=== PATIENT | female | born 1995 | race Caucasian/White ===

== ENCOUNTER 2017-10-02 19:39 | Emergency (ER) | payer OTHER, MEDICAID ==
[~2017-10-02] VITALS: Ht 165.1 cm; Wt 95.4 kg
[~2017-10-02 19:39] MED LIST: ACET1TAB12 PO; ASPI-1265 PO; CIPR7.5D2 EACH EAR; ENAL2.5T40 PO; FURO-150 PO; IBUP-814 PO; LEVA15HF4 IH; ONDA8TAB6 PO
[2017-10-02 19:46] VITALS: BP 120/82
[2017-10-02] MEDS ORDERED: acetaminophen 325mg tablet PO ONE (20:10)
== END 2017-10-02 21:00 | disposition home or self-care (01) ==
LOC: ER 19:40
DX: M25.562 Pain in left knee (principal); Z79.82 Long term (current) use of aspirin; Z79.899 Other long term (current) drug therapy
CPT/HCPCS: 99283; A6449

== ENCOUNTER 2018-09-10 14:47 | Emergency (ER) | payer MEDICAID, OTHER ==
[~2018-09-10] VITALS: Ht 162.6 cm; Wt 101.0 kg
[2018-09-10 15:16] LABS: BASOPHILS % (AUTO) 0.1 % (0-1); EOSINOPHILS # (AUTO) 0.1 X10'3 (0-0.9); EOSINOPHILS % (AUTO) 1.5 % (0-6); HEMATOCRIT 43.6 % (35.0-45.0); HEMOGLOBIN 14.8 g/dl (12.0-16.0); LYMPHOCYTES # (AUTO) 1.3 X10'3 (1.1-4.8); LYMPHOCYTES % (AUTO) 18.9 % (21-51); MEAN CORPUSCULAR HEMOGLOBIN 29.6 PG (27.0-31.0); MEAN CORPUSCULAR HGB CONC 33.9 g/dL (33.0-36.5); MEAN CORPUSCULAR VOLUME 87.2 FL (78-98); MEAN PLATELET VOLUME 9.6 FL (7.4-10.4); MONOCYTES # (AUTO) 0.4 X10'3 (0-0.9); MONOCYTES % (AUTO) 6.6 % (2-12); NEUTROPHILS # (AUTO) 4.9 X10'3 (1.8-7.7); NEUTROPHILS % (AUTO) 72.9 % (42-75); PLATELET COUNT 170 X10'3 (140-440); RED CELL DISTRIBUTION WIDTH 14.4 % (11.5-14.5); WHITE BLOOD COUNT 6.7 X10'3 (4.5-11.0)
[2018-09-10 15:32] LABS: PROTHROMBIN TIME 11.6 SECONDS (9.0-12.0)
[2018-09-10 15:33] LABS: INR 1.2 INR
[2018-09-10 15:40] LABS: ALANINE AMINOTRANSFERASE 48 U/L (12-78); ALBUMIN 3.9 G/DL (3.4-5.0); ALBUMIN/GLOBULIN RATIO 0.9 (1.1-1.5); ALKALINE PHOSPHATASE 81 IU/L (20-180); AMYLASE 25 U/L (25-115); ANION GAP 13 (8-16); ASPARTATE AMINO TRANSFERASE 28 U/L (10-37); BILIRUBIN,TOTAL 0.8 MG/DL (0.1-1.0); BLOOD UREA NITROGEN 19 MG/DL (7-18); CALCIUM 9.7 MG/DL (8.5-10.1); CHLORIDE 103 MMOL/L (99-107); CREATININE 0.76 MG/DL (0.40-0.90); GLUCOSE 143 MG/DL (70-104); LIPASE 130 U/L (73-393); SODIUM 136 MMOL/L (135-145); TOTAL CARBON DIOXIDE 19.8 MMOL/L (24-32); TOTAL PROTEIN 8.2 G/DL (6.4-8.2); eGFR > 90 ML/MIN
[2018-09-10 15:56] LABS: URINE HCG NEGATIVE (NEG)
[2018-09-10 15:57] LABS: CLARITY,URINE CLEAR (Clear); COLOR,URINE STRAW (Yellow); GLUCOSE, URINE NEGATIVE (Neg); KETONES,URINE NEGATIVE (Neg); LEUKOCYTE ESTERASE ,URINE TRACE (Neg); NITRITES, URINE NEGATIVE (Neg); OCCULT BLOOD,URINE NEGATIVE (Neg); PH,URINE 5.5 (4.8-8.0); PROTEIN,URINE NEGATIVE (Neg); UROBILINOGEN,URINE 0.2 E.U/dL (0.2-1.0)
[2018-09-10 15:59] LABS: UA COLLECTION TYPE CLN CATCH MIDSTREAM
[2018-09-10 16:05] LABS: RBC,URINE NONE SEEN /HPF (0-2)
[2018-09-10] MEDS ORDERED: morphine 4 MG/ML inj SYRINge IM ONE (16:05)
[2018-09-10 16:11] LABS: BACTERIA,URINE FEW /HPF (Neg); SQUAMOUS EPITHELIAL CELL,UR FEW /LPF (FEW)
[2018-09-10 16:43] VITALS: BP 120/60
[2018-09-11] MEDS ORDERED: POLY17PO10 PO (05:19)
[2018-09-11] MEDS ORDERED: BISA-155 PO (05:19)
== END 2018-09-10 16:57 | disposition home or self-care (01) ==
LOC: ER 14:47
DX: R10.31 Right lower quadrant pain (principal); R10.32 Left lower quadrant pain; Z79.82 Long term (current) use of aspirin
CPT/HCPCS: 36415; 74176; 80053; 81001; 81025; 82150; 83690; 85025; 85610; 87088; 96372; 99284; J2270; 87077; 87186

== ENCOUNTER 2018-09-11 03:57 | Emergency (ER) | payer MEDICAID ==
[~2018-09-11] VITALS: Ht 162.6 cm; Wt 100.6 kg
[2018-09-11 04:00] VITALS: BP 142/85
[2018-09-11] MEDS ORDERED: acetaminophen 325mg tablet PO ONE (04:15)
[2018-09-11 04:47] LABS: BASOPHILS # (AUTO) 0.1 X10'3 (0-0.2); BASOPHILS % (AUTO) 0.7 % (0-1); EOSINOPHILS # (AUTO) 0.1 X10'3 (0-0.9); EOSINOPHILS % (AUTO) 1.5 % (0-6); HEMATOCRIT 44.2 % (35.0-45.0); HEMOGLOBIN 14.7 g/dl (12.0-16.0); LYMPHOCYTES # (AUTO) 1.5 X10'3 (1.1-4.8); LYMPHOCYTES % (AUTO) 18.6 % (21-51); MEAN CORPUSCULAR HEMOGLOBIN 29.1 PG (27.0-31.0); MEAN CORPUSCULAR HGB CONC 33.3 g/dL (33.0-36.5); MEAN CORPUSCULAR VOLUME 87.1 FL (78-98); MEAN PLATELET VOLUME 9.9 FL (7.4-10.4); MONOCYTES # (AUTO) 0.6 X10'3 (0-0.9); NEUTROPHILS # (AUTO) 5.8 X10'3 (1.8-7.7); NEUTROPHILS % (AUTO) 72.2 % (42-75); PLATELET COUNT 172 X10'3 (140-440); RED BLOOD COUNT 5.07 X10'6 (4.20-5.60); RED CELL DISTRIBUTION WIDTH 14.1 % (11.5-14.5)
[2018-09-11 04:54] LABS: ALANINE AMINOTRANSFERASE 49 U/L (12-78); ALBUMIN 3.9 G/DL (3.4-5.0); ALBUMIN/GLOBULIN RATIO 0.8 (1.1-1.5); ALKALINE PHOSPHATASE 87 IU/L (20-180); ANION GAP 14 (8-16); ASPARTATE AMINO TRANSFERASE 26 U/L (10-37); BLOOD UREA NITROGEN 16 MG/DL (7-18); BUN/CREATININE RATIO 21.6 (6.6-38.0); CALCIUM 8.9 MG/DL (8.5-10.1); CHLORIDE 101 MMOL/L (99-107); CREATININE 0.74 MG/DL (0.40-0.90); GLUCOSE 121 MG/DL (70-104); MAGNESIUM 1.6 MG/DL (1.5-2.4); POTASSIUM 3.9 MMOL/L (3.5-5.1); SODIUM 137 MMOL/L (135-145); TOTAL CARBON DIOXIDE 22.3 MMOL/L (24-32); TOTAL PROTEIN 8.6 G/DL (6.4-8.2); eGFR > 90 ML/MIN
[2018-09-11 04:56] LABS: INR 1.2 INR; PARTIAL THROMBOPLASTIN TIME 28 SECONDS (22-32); PROTHROMBIN TIME 11.6 SECONDS (9.0-12.0)
--- NOTE | 2018-09-11 05:07 | NUR ---
STATES TO HOLD ON BC AND LA FOR RIGHT NOW US AT BS
--- NOTE | 2018-09-11 05:12 | NUR ---
CARROLL INFORMED ME THAT THE PATIENT DOESN'T HAVE TO VOID RIGHT NOW (TRYING TO GET UA) AND THAT SHE DOESN'T WANT ANY PAIN MEDICINE, ANY MORE TESTS AND WANTS TO GO HOME, CARROLL INFORMED MD WELL AND MD IN ROOM NOW.
[2018-09-11] MEDS ORDERED: POLY17PO10 PO (05:19)
[2018-09-11] MEDS ORDERED: BISA-155 PO (05:19)
[2018-09-11] MEDS ORDERED: magnesium citrate 296ml oral solution PO ONE (05:25)
== END 2018-09-11 05:33 | disposition home or self-care (01) ==
LOC: ER 03:58
DX: I88.0 Nonspecific mesenteric lymphadenitis (principal); Z79.82 Long term (current) use of aspirin
CPT/HCPCS: 36415; 71045; 76830; 76856; 80053; 83735; 84145; 85025; 85610; 85730; 93005; 99284

== ENCOUNTER 2019-03-28 16:07 | Emergency (ER) | payer OTHER, MEDICAID ==
[~2019-03-28] VITALS: Ht 165.1 cm; Wt 99.5 kg
[~2019-03-28 16:07] MED LIST changes: +BISA-155 PO
[2019-03-28 16:18] VITALS: BP 104/59
== END 2019-03-28 17:19 | disposition home or self-care (01) ==
LOC: ER 16:08
DX: O9A.212 Injury, poisoning and certain other consequences of external causes complicating pregnancy, second trimester (principal); Z98.890 Other specified postprocedural states; Z79.82 Long term (current) use of aspirin; Z79.899 Other long term (current) drug therapy; Z3A.18 18 weeks gestation of pregnancy; V87.7XXA Person injured in collision between other specified motor vehicles (traffic), initial encounter; Y93.89 Activity, other specified; Y92.481 Parking lot as the place of occurrence of the external cause; Y99.8 Other external cause status
CPT/HCPCS: 99284

== ENCOUNTER 2021-02-11 08:50 | Emergency (ER) | payer MEDICAID, OTHER ==
[~2021-02-11] VITALS: Ht 165.1 cm; Wt 109.5 kg
[2021-02-11 08:51] VITALS: BP 165/110
[2021-02-11] MEDS ORDERED: CLIN-97 PO (10:33)
== END 2021-02-11 10:44 | disposition home or self-care (01) ==
LOC: ER 08:51
DX: K04.7 Periapical abscess without sinus (principal); K08.89 Other specified disorders of teeth and supporting structures; K72.90 Hepatic failure, unspecified without coma; Z79.82 Long term (current) use of aspirin; Z79.2 Long term (current) use of antibiotics; Z79.899 Other long term (current) drug therapy
CPT/HCPCS: 41800; 99283

== ENCOUNTER 2021-08-08 12:40 | Inpatient (IN) | payer MEDICAID ==
[~2021-08-08] VITALS: Ht 165.1 cm; Wt 104.0 kg
[~2021-08-08 12:40] MED LIST changes: +CLIN-97 PO
[2021-08-08] MEDS ORDERED: LORazepam 2 mg/ml vial IV ONE (13:00)
[2021-08-08] MEDS ORDERED: amiodarone/D5 360MG/200ML BAG 200 ML IV ONE ×3 (13:00→18:20)
[2021-08-08] MEDS ORDERED: amiodarone 150mg/dext, iso-os 100 ML IV ONE ×2 (13:00→15:45)
--- NOTE | 2021-08-08 13:11 | NUR ---
patient refused to be treated, Dr. Fuller at bedside HR 200.
[2021-08-08] MEDS ORDERED: metoprolol tartrate 1mg/ml inj IV ONE (13:30)
[2021-08-08 13:31] LABS: BASOPHILS % (AUTO) 0.6 % (0-1); EOSINOPHILS # (AUTO) 0.1 X10'3 (0-0.9); EOSINOPHILS % (AUTO) 1.5 % (0-6); HEMATOCRIT 48.4 % (35.0-45.0); HEMOGLOBIN 16.2 g/dl (12.0-16.0); LYMPHOCYTES # (AUTO) 1.9 X10'3 (1.1-4.8); LYMPHOCYTES % (AUTO) 37.8 % (21-51); MEAN CORPUSCULAR HEMOGLOBIN 29.5 PG (27.0-31.0); MEAN CORPUSCULAR HGB CONC 33.5 g/dL (33.0-36.5); MEAN CORPUSCULAR VOLUME 88.1 FL (78-98); MONOCYTES # (AUTO) 0.8 X10'3 (0-0.9); MONOCYTES % (AUTO) 14.7 % (2-12); NEUTROPHILS # (AUTO) 2.3 X10'3 (1.8-7.7); NEUTROPHILS % (AUTO) 45.4 % (42-75); PLATELET COUNT 175 X10'3 (140-440); RED BLOOD COUNT 5.49 X10'6 (4.20-5.60); RED CELL DISTRIBUTION WIDTH 15.4 % (11.5-14.5); WHITE BLOOD COUNT 5.2 X10'3 (4.5-11.0)
[2021-08-08 13:31] LABS: HCG SERUM QL NEGATIVE
[2021-08-08] MEDS ORDERED: heparin 10,000 units/1 ML INJ IV ONE (13:35)
[2021-08-08] MEDS ORDERED: heparin 25,000 UNIT/250ml bag 250 ML IV SCH (13:35)
[2021-08-08 13:38] LABS: ALANINE AMINOTRANSFERASE 55 U/L (12-78); ALBUMIN 4.4 G/DL (3.4-5.0); ALBUMIN/GLOBULIN RATIO 0.9 (1.1-1.5); ALKALINE PHOSPHATASE 77 IU/L (46-116); ANION GAP 16 (8-16); ASPARTATE AMINO TRANSFERASE 49 U/L (10-37); BILIRUBIN,TOTAL 1.6 MG/DL (0.1-1.0); BLOOD UREA NITROGEN 15 MG/DL (7-18); BUN/CREATININE RATIO 13.9 (6.6-38.0); CALCIUM 9.5 MG/DL (8.5-10.1); CHLORIDE 101 MMOL/L (99-107); CREATININE 1.08 MG/DL (0.40-0.90); GLUCOSE 166 MG/DL (70-104); MAGNESIUM 1.8 MG/DL (1.5-2.4); POTASSIUM 3.6 MMOL/L (3.5-5.1); SODIUM 138 MMOL/L (135-145); TOTAL CARBON DIOXIDE 21.4 MMOL/L (24-32); TOTAL PROTEIN 9.1 G/DL (6.4-8.2); eGFR 63 ML/MIN
--- NOTE | 2021-08-08 13:54 | NUR ---
Dr. Jones ok'd to give heparin bolus and start heparin drip.Patient agreed with treatment.
[2021-08-08] MEDS ORDERED: magnesium 2GM in 50ml NS 50 ML IV ONE (14:05)
--- NOTE | 2021-08-08 14:31 | NUR ---
use cardaic with heparin drip per Dr. Fuller.
[2021-08-08] MEDS ORDERED: ondansetron 4mg rapidly disintigrating tab PO STA (15:24)
[2021-08-08] MEDS ORDERED: ondansetron/PF 4mg/2ml inj IV STA (15:25)
[2021-08-08] MEDS ORDERED: ondansetron/PF 4mg/2ml inj IV ONE (15:45)
[2021-08-08] MEDS ORDERED: etomidate 2mg/ml inj. IV ONE (15:45)
--- NOTE | 2021-08-08 16:57 | NUR ---
patient changed her mind-will talk to first to see if what he thinks.
--- NOTE | 2021-08-08 16:57 | NUR ---
patient wanted to go home,AMA form signed, Antonio RAMÍREZ at bedside.
--- NOTE | 2021-08-08 16:58 | NUR ---
Spouse at bedside,patient will go AMA.
--- NOTE | 2021-08-08 16:58 | NUR ---
Dr. Amaro and Dr. Baptiste made aware as above.
[2021-08-08] MEDS ORDERED: AMIO200T27 PO (17:06)
[2021-08-08] MEDS ORDERED: METO-395 PO ×2 (17:06→18:23)
[2021-08-08] MEDS ORDERED: diphenhydrAMINE 25mg capsule PO PRN (18:05)
[2021-08-08] MEDS ORDERED: potassium Cl 20 mEq SR tablet PO PRN ×2 (18:05)
[2021-08-08] MEDS ORDERED: HYDROcodone/acetaminophen 10/325mg tab PO PRN (18:05)
[2021-08-08] MEDS ORDERED: magnesium Cl slow-release 64mg tablet PO PRN (18:05)
[2021-08-08] MEDS ORDERED: acetaminophen 650mg rectal suppository RC PRN (18:05)
[2021-08-08] MEDS ORDERED: normal saline 1000ml 1,000 ML IV SCH (18:05)
[2021-08-08] MEDS ORDERED: magnesium 4gm in 100ml NS 100 ML IV PRN (18:05)
[2021-08-08] MEDS ORDERED: magnesium hydroxide 30ml (MOM) UD suspension PO PRN (18:05)
[2021-08-08] MEDS ORDERED: bisacodyl 10mg suppository rectal RC PRN (18:05)
[2021-08-08] MEDS ORDERED: morphine 2 MG/ML inj. syringe IV PRN ×2 (18:05)
[2021-08-08] MEDS ORDERED: acetaminophen 325mg tablet PO PRN ×2 (18:05)
[2021-08-08] MEDS ORDERED: potassium CL 10mEq/100ml bag 100 ML IV PRN (18:05)
[2021-08-08] MEDS ORDERED: HYDROcodone/acetaminophen 5mg/325mg tablet PO PRN (18:05)
[2021-08-08] MEDS ORDERED: magnesium 2GM in 50ml NS 50 ML IV PRN (18:05)
[2021-08-08] MEDS ORDERED: mag hydrox/Alum hydrox/simeth 30ml oral suspension PO PRN (18:05)
[2021-08-08] MEDS ORDERED: PERFLUTREN PROTEIN-A MICROSPHR (Optison) 0.22 MG/ML 3ML VIAL IV ONE (18:05)
[2021-08-08] MEDS ORDERED: amiodarone/D5 360MG/200ML BAG 200 ML IV SCH (18:17)
[2021-08-08] MEDS ORDERED: ASPI-1071 PO (18:23)
[2021-08-08 18:52] LABS: HEMOGLOBIN A1C 5.6 % (4.5-6.2)
[2021-08-08] MEDS ORDERED: docusate sod 100mg capsule PO SCH (20:00)
[2021-08-08] MEDS ORDERED: K and/or MAG REPLACEMENT MC SCH (20:00)
[2021-08-08] MEDS ORDERED: heparin, porcine 5000 units/ml vial SQ SCH (20:00)
[2021-08-08] MEDS ORDERED: PERFLUTREN PROTEIN-A MICROSPHR (Optison) 0.22 MG/ML 3ML VIAL IV PRN (20:30)
[2021-08-08] MEDS ORDERED: AMIO200T61 PO (20:39)
[2021-08-08] MEDS ORDERED: APIX5TAB3 PO (20:39)
[2021-08-08 21:19] VITALS: BP 96/67
== END 2021-08-08 21:00 | disposition left against medical advice (07) | DRG 201 ==
LOC: ER 12:42 → ED HOLD 18:14
PROVIDERS: ADMIT Family Medicine; ATTEND Family Medicine
PROC: 5A2204Z Restoration of Cardiac Rhythm, Single (ICD-10-PCS; principal; 2021-08-08)
DX: I48.91 Unspecified atrial fibrillation (principal); I08.1 Rheumatic disorders of both mitral and tricuspid valves; Z20.822 Contact with and (suspected) exposure to COVID-19; Z53.29 Procedure and treatment not carried out because of patient's decision for other reasons; Z79.899 Other long term (current) drug therapy; Z79.82 Long term (current) use of aspirin; Z91.19 Patient's noncompliance with other medical treatment and regimen
CPT/HCPCS: 36415; 80053; 83036; 83735; 84443; 84484; 84703; 85025; 85610; 85730; 87635; 93005; 94799; 96365; 96366; 96368; 96375; 99285; C9803; G0378; J0282; J1644; J3475; J3490

== ENCOUNTER 2022-02-13 19:42 | Emergency (ER) | payer MEDICAID ==
[~2022-02-13] VITALS: Ht 165.1 cm; Wt 109.1 kg
[~2022-02-13 19:42] MED LIST changes: -ACET1TAB12 PO; +ASPI-1071 PO; -ASPI-1265 PO; -BISA-155 PO; -CIPR7.5D2 EACH EAR; -CLIN-97 PO; -ENAL2.5T40 PO; -FURO-150 PO; -IBUP-814 PO; -LEVA15HF4 IH; +METO-395 PO; -ONDA8TAB6 PO
[2022-02-13] MEDS ORDERED: diltiazem 5mg/ml 5ml inj. IV ONE ×3 (20:05→20:10)
[2022-02-13] MEDS ORDERED: normal saline 1000ML IV soln IVB ONE (20:05)
[2022-02-13] MEDS ORDERED: amiodarone 150mg/dext, iso-os 100 ML IV ONE (20:10)
[2022-02-13] MEDS ORDERED: magnesium 2GM in 50ml NS 50 ML IV ONE (20:10)
[2022-02-13 20:35] LABS: BASOPHILS % (AUTO) 0.3 % (0-1); EOSINOPHILS # (AUTO) 0.1 X10'3 (0-0.9); EOSINOPHILS % (AUTO) 0.6 % (0-6); HEMATOCRIT 49.7 % (35.0-45.0); HEMOGLOBIN 16.6 g/dl (12.0-16.0); LYMPHOCYTES # (AUTO) 1.9 X10'3 (1.1-4.8); LYMPHOCYTES % (AUTO) 16.3 % (21-51); MEAN CORPUSCULAR HGB CONC 33.3 g/dL (33.0-36.5); MEAN PLATELET VOLUME 9.6 FL (7.4-10.4); MONOCYTES # (AUTO) 0.7 X10'3 (0-0.9); MONOCYTES % (AUTO) 6.2 % (2-12); NEUTROPHILS # (AUTO) 8.7 X10'3 (1.8-7.7); NEUTROPHILS % (AUTO) 76.6 % (42-75); PLATELET COUNT 221 X10'3 (140-440); RED BLOOD COUNT 5.53 X10'6 (4.20-5.60); RED CELL DISTRIBUTION WIDTH 14.3 % (11.5-14.5); WHITE BLOOD COUNT 11.4 X10'3 (4.5-11.0)
[2022-02-13 20:37] LABS: APTT 29 SECONDS (22-32)
[2022-02-13 20:42] LABS: ALANINE AMINOTRANSFERASE 56 U/L (12-78); ALBUMIN 4.4 G/DL (3.4-5.0); ALKALINE PHOSPHATASE 70 IU/L (46-116); ANION GAP 12 (8-16); ASPARTATE AMINO TRANSFERASE 34 U/L (10-37); BILIRUBIN,TOTAL 1.1 MG/DL (0.1-1.0); BLOOD UREA NITROGEN 20 MG/DL (7-18); BUN/CREATININE RATIO 19.6 (6.6-38.0); CALCIUM 9.7 MG/DL (8.5-10.1); CHLORIDE 104 MMOL/L (99-107); CREATININE 1.02 MG/DL (0.40-0.90); GLUCOSE 129 MG/DL (70-104); POTASSIUM 4.1 MMOL/L (3.5-5.1); SODIUM 138 MMOL/L (135-145); TOTAL PROTEIN 8.9 G/DL (6.4-8.2); eGFR 67 ML/MIN
[2022-02-13 20:49] LABS: MAGNESIUM 1.8 MG/DL (1.5-2.4)
[2022-02-13] MEDS ORDERED: APIX5TAB3 PO (22:25)
[2022-02-13] MEDS ORDERED: AMIO200T61 PO (22:25)
[2022-02-13] MEDS ORDERED: propofol 10mg/ml 20ml vial IV ONE ×2 (22:35→23:15)
[2022-02-13] MEDS ORDERED: MIDAZolam 5mg/ml 2ml vial IV ONE (22:35)
[2022-02-13] MEDS ORDERED: vasopressin inj. 40 UNIT in dextrose 5%-water 50ml 38 ML IV SCH (23:00)
[2022-02-13] MEDS ORDERED: vasoPRESSIN 20 units/ml inj. IV ONE (23:05)
[2022-02-14 00:59] VITALS: BP 107/60
== END 2022-02-14 01:02 | disposition home or self-care (01) ==
LOC: ER 19:43
DX: I48.20 Chronic atrial fibrillation, unspecified (principal); Z87.19 Personal history of other diseases of the digestive system
CPT/HCPCS: 36415; 71045; 80053; 83735; 83880; 84484; 85025; 85610; 85730; 92960; 93005; 94799; 96365; 96368; 96375; 99291; J0282; J2250; J2704; J3475; J3490; J7030; 99285

== ENCOUNTER 2023-04-10 16:22 | Emergency (ER) | payer MEDICAID ==
[~2023-04-10] VITALS: Ht 165.1 cm; Wt 106.8 kg
[~2023-04-10 16:22] MED LIST changes: +AMI200T PO; +APIX5TAB3 PO; -ASPI-1071 PO; -METO-395 PO
[2023-04-10 16:55] LABS: BASOPHILS % (AUTO) 0.6 % (0-1); EOSINOPHILS # (AUTO) 0.1 X10'3 (0-0.9); EOSINOPHILS % (AUTO) 2.5 % (0-6); HEMATOCRIT 40.4 % (35.0-45.0); HEMOGLOBIN 13.6 g/dl (12.0-16.0); LYMPHOCYTES # (AUTO) 1.4 X10'3 (1.1-4.8); LYMPHOCYTES % (AUTO) 25.1 % (21-51); MEAN CORPUSCULAR HEMOGLOBIN 28.9 PG (27.0-31.0); MEAN CORPUSCULAR HGB CONC 33.7 g/dL (33.0-36.5); MEAN CORPUSCULAR VOLUME 85.6 FL (78-98); MEAN PLATELET VOLUME 9.2 FL (7.4-10.4); MONOCYTES # (AUTO) 0.6 X10'3 (0-0.9); MONOCYTES % (AUTO) 11.2 % (2-12); NEUTROPHILS # (AUTO) 3.4 X10'3 (1.8-7.7); NEUTROPHILS % (AUTO) 60.6 % (42-75); PLATELET COUNT 194 X10'3 (140-440); RED BLOOD COUNT 4.72 X10'6 (4.20-5.60); RED CELL DISTRIBUTION WIDTH 14.4 % (11.5-14.5); WHITE BLOOD COUNT 5.6 X10'3 (4.5-11.0)
[2023-04-10 17:10] LABS: ALANINE AMINOTRANSFERASE 44 U/L (12-78); ALBUMIN 3.7 G/DL (3.4-5.0); ALBUMIN/GLOBULIN RATIO 0.8 (1.1-1.5); ALKALINE PHOSPHATASE 65 IU/L (46-116); ANION GAP 13 (8-16); ASPARTATE AMINO TRANSFERASE 29 U/L (10-37); BILIRUBIN,TOTAL 1.9 MG/DL (0.1-1.0); BLOOD UREA NITROGEN 22 MG/DL (7-18); BUN/CREATININE RATIO 26.5 (10.0-20.0); CALCIUM 9.9 MG/DL (8.5-10.1); CHLORIDE 103 MMOL/L (99-107); CREATININE 0.83 MG/DL (0.40-0.90); GLUCOSE 109 MG/DL (70-104); SODIUM 138 MMOL/L (135-145); TOTAL CARBON DIOXIDE 22.1 MMOL/L (24-32); TOTAL PROTEIN 8.2 G/DL (6.4-8.2); eCRCL 93 ML/MIN; eGFR 84 ML/MIN
[2023-04-10 17:11] VITALS: TEMP 98
--- NOTE | 2023-04-10 17:13 | NUR ---
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 VITAL SIGNS AND CONDITION REPORT GIVEN TO AND SHE SPOKE WITH DR. PERRY VIA TELEPHONE.
[2023-04-10 17:17] LABS: PRO BRAIN NATRIURETIC PEPTIDE 704 PG/ML (0-125)
[2023-04-10] MEDS ORDERED: magnesium 2GM in 50ml NS 50 ML IV ONE (19:55)
[2023-04-10] MEDS ORDERED: magnesium oxide 400mg tablet PO ONE (19:55)
[2023-04-10 20:00] LABS: MAGNESIUM 1.8 MG/DL (1.5-2.4)
[2023-04-10] MEDS ORDERED: metoprolol tartrate 50mg tablet PO ONE (20:15)
[2023-04-10] MEDS ORDERED: ringers solution, lacted 1,000 ML IV ONE (20:20)
[2023-04-10 22:59] VITALS: BP 96/66; PULSE 100; RESP 20; O2SAT 99
== END 2023-04-10 20:00 | disposition home or self-care (01) ==
LOC: ER 16:22
DX: I47.1 Supraventricular tachycardia (principal); Q24.9 Congenital malformation of heart, unspecified; Z79.899 Other long term (current) drug therapy; Z98.890 Other specified postprocedural states
CPT/HCPCS: 36415; 71045; 80053; 83735; 83880; 84484; 85025; 93005; 96365; 99291; J3475; J7120; 99285

== ENCOUNTER 2023-06-02 21:46 | Emergency (ER) | payer MEDICAID ==
[~2023-06-02] VITALS: Ht 162.6 cm; Wt 100.0 kg
[2023-06-02 22:45] LABS: ALANINE AMINOTRANSFERASE 33 U/L (12-78); ALBUMIN 3.7 G/DL (3.4-5.0); ALBUMIN/GLOBULIN RATIO 0.8 (1.1-1.5); ALKALINE PHOSPHATASE 72 IU/L (46-116); ANION GAP 11 (8-16); ASPARTATE AMINO TRANSFERASE 30 U/L (10-37); BILIRUBIN,TOTAL 1.1 MG/DL (0.1-1.0); BLOOD UREA NITROGEN 12 MG/DL (7-18); BUN/CREATININE RATIO 18.8 (10.0-20.0); CALCIUM 9.9 MG/DL (8.5-10.1); CHLORIDE 102 MMOL/L (99-107); CREATININE 0.64 MG/DL (0.40-0.90); GLUCOSE 130 MG/DL (70-104); SODIUM 135 MMOL/L (135-145); TOTAL CARBON DIOXIDE 22.5 MMOL/L (24-32); TOTAL PROTEIN 8.2 G/DL (6.4-8.2); eCRCL 116 ML/MIN; eGFR > 90 ML/MIN
[2023-06-02 22:52] LABS: PRO BRAIN NATRIURETIC PEPTIDE 458 PG/ML (0-125)
[2023-06-02 22:56] LABS: POTASSIUM 3.7 MMOL/L (3.5-5.1)
--- NOTE | 2023-06-02 23:01 | NUR ---
CALL FROM LAB BLOOD CLOTTED ON LAVENDER TUBE WILL RE-DRAW.
[2023-06-02 23:32] LABS: BASOPHILS % (AUTO) 0.5 % (0-1); EOSINOPHILS # (AUTO) 0.1 X10'3 (0-0.9); EOSINOPHILS % (AUTO) 1.6 % (0-6); HEMATOCRIT 40.7 % (35.0-45.0); HEMOGLOBIN 13.6 g/dl (12.0-16.0); LYMPHOCYTES # (AUTO) 1.3 X10'3 (1.1-4.8); MEAN CORPUSCULAR HEMOGLOBIN 27.9 PG (27.0-31.0); MEAN CORPUSCULAR HGB CONC 33.4 g/dL (33.0-36.5); MEAN CORPUSCULAR VOLUME 83.5 FL (78-98); MEAN PLATELET VOLUME 9.5 FL (7.4-10.4); MONOCYTES # (AUTO) 0.6 X10'3 (0-0.9); MONOCYTES % (AUTO) 7.8 % (2-12); NEUTROPHILS # (AUTO) 5.4 X10'3 (1.8-7.7); NEUTROPHILS % (AUTO) 73.1 % (42-75); PLATELET COUNT 157 X10'3 (140-440); RED BLOOD COUNT 4.87 X10'6 (4.20-5.60); RED CELL DISTRIBUTION WIDTH 14.8 % (11.5-14.5); WHITE BLOOD COUNT 7.4 X10'3 (4.5-11.0)
[2023-06-02 23:52] VITALS: BP 106/64; PULSE 91; RESP 16; TEMP 98.3; O2SAT 94
== END 2023-06-02 23:56 | disposition home or self-care (01) ==
LOC: ER 21:47
DX: R00.2 Palpitations (principal); Z79.899 Other long term (current) drug therapy
CPT/HCPCS: 36415; 71045; 80053; 83880; 84484; 85025; 93005; 99285

== ENCOUNTER 2023-07-26 17:29 | Emergency (ER) | payer MEDICAID ==
[~2023-07-26] VITALS: Ht 165.1 cm; Wt 95.9 kg
[2023-07-26 17:48] LABS: BASOPHILS # (AUTO) 0.1 X10'3 (0-0.2); EOSINOPHILS # (AUTO) 0.1 X10'3 (0-0.9); EOSINOPHILS % (AUTO) 0.8 % (0-6); HEMATOCRIT 42.7 % (35.0-45.0); HEMOGLOBIN 14.8 g/dl (12.0-16.0); LYMPHOCYTES # (AUTO) 0.4 X10'3 (1.1-4.8); LYMPHOCYTES % (AUTO) 6.1 % (21-51); MEAN CORPUSCULAR HEMOGLOBIN 29.7 PG (27.0-31.0); MEAN CORPUSCULAR HGB CONC 34.6 g/dL (33.0-36.5); MEAN CORPUSCULAR VOLUME 85.9 FL (78-98); MEAN PLATELET VOLUME 9.3 FL (7.4-10.4); MONOCYTES # (AUTO) 0.5 X10'3 (0-0.9); MONOCYTES % (AUTO) 7.6 % (2-12); NEUTROPHILS # (AUTO) 5.7 X10'3 (1.8-7.7); NEUTROPHILS % (AUTO) 83.5 % (42-75); PLATELET COUNT 196 X10'3 (140-440); RED BLOOD COUNT 4.97 X10'6 (4.20-5.60); RED CELL DISTRIBUTION WIDTH 17.9 % (11.5-14.5); WHITE BLOOD COUNT 6.8 X10'3 (4.5-11.0)
[2023-07-26 18:03] LABS: ALANINE AMINOTRANSFERASE 39 U/L (12-78); ALBUMIN 3.8 G/DL (3.4-5.0); ALBUMIN/GLOBULIN RATIO 0.8 (1.1-1.5); ALKALINE PHOSPHATASE 90 IU/L (46-116); ANION GAP 13 (8-16); ASPARTATE AMINO TRANSFERASE 27 U/L (10-37); BILIRUBIN,TOTAL 1.9 MG/DL (0.1-1.0); BLOOD UREA NITROGEN 15 MG/DL (7-18); CALCIUM 9.6 MG/DL (8.5-10.1); CHLORIDE 100 MMOL/L (99-107); CREATININE 0.94 MG/DL (0.40-0.90); GLUCOSE 115 MG/DL (70-104); POTASSIUM 4.2 MMOL/L (3.5-5.1); SODIUM 132 MMOL/L (135-145); TOTAL CARBON DIOXIDE 19.5 MMOL/L (24-32); TOTAL PROTEIN 8.7 G/DL (6.4-8.2); eCRCL 82 ML/MIN; eGFR 73 ML/MIN
[2023-07-26 18:10] LABS: PRO BRAIN NATRIURETIC PEPTIDE 783 PG/ML (0-125)
[2023-07-26] MEDS ORDERED: ondansetron 4mg rapidly disintigrating tab PO ONE (18:55)
[2023-07-26] MEDS ORDERED: normal saline 1000ml 1,000 ML IV ONE (18:55)
[2023-07-26] MEDS ORDERED: dexamethasone sod phosphate 10mg/ml inj IV STA (19:04)
[2023-07-26] MEDS ORDERED: ketorolac tromethamine 15mg/ml inj. IV ONE (19:05)
[2023-07-26] MEDS ORDERED: dexamethasone sod phosphate 4mg/ml inj. IV STA (19:11)
[2023-07-26 20:17] VITALS: TEMP 98.7
[2023-07-26 21:50] VITALS: BP 96/52; PULSE 87; RESP 17; O2SAT 93
[2023-07-26] MEDS ORDERED: NIRM1TAB PO (21:52)
== END 2023-07-26 22:37 | disposition home or self-care (01) ==
LOC: ER 22:36
DX: U07.1 COVID-19 (principal); R07.89 Other chest pain; I99.9 Unspecified disorder of circulatory system; I48.91 Unspecified atrial fibrillation; Q24.9 Congenital malformation of heart, unspecified; Z79.899 Other long term (current) drug therapy
CPT/HCPCS: 36415; 71045; 80053; 83880; 84145; 84484; 85025; 87502; 87503; 87811; 96361; 96374; 96375; 99291; J1100; J1885; J7030; 99285

== ENCOUNTER 2023-09-20 23:38 | Emergency (ER) | payer MEDICAID ==
[~2023-09-20] VITALS: Ht 165.1 cm; Wt 94.5 kg
[~2023-09-20 23:38] MED LIST changes: +NIRM1TAB PO
[2023-09-20 23:51] VITALS: TEMP 97.8
[2023-09-20] MEDS ORDERED: diltiazem 5mg/ml 5ml inj. IV ONE (23:55)
[2023-09-21] MEDS: ondansetron/PF 4mg/2ml inj IV ONE (00:18)
[2023-09-21] MEDS: normal saline 1000ml 1,000 ML IV ONE ×2 (00:19→01:35)
[2023-09-21] MEDS: adenosine 3mg/ml 2ml vial IV ONE (00:19)
[2023-09-21 00:34] LABS: BASOPHILS # (AUTO) 0.1 X10'3 (0-0.2); BASOPHILS % (AUTO) 0.7 % (0-1); EOSINOPHILS # (AUTO) 0.1 X10'3 (0-0.9); EOSINOPHILS % (AUTO) 1.6 % (0-6); HEMATOCRIT 46.4 % (35.0-45.0); HEMOGLOBIN 15.7 g/dl (12.0-16.0); LYMPHOCYTES # (AUTO) 2.8 X10'3 (1.1-4.8); LYMPHOCYTES % (AUTO) 33.1 % (21-51); MEAN CORPUSCULAR HEMOGLOBIN 30.1 PG (27.0-31.0); MEAN CORPUSCULAR HGB CONC 33.8 g/dL (33.0-36.5); MEAN CORPUSCULAR VOLUME 89.1 FL (78-98); MEAN PLATELET VOLUME 10.1 FL (7.4-10.4); MONOCYTES # (AUTO) 0.8 X10'3 (0-0.9); MONOCYTES % (AUTO) 8.9 % (2-12); NEUTROPHILS # (AUTO) 4.7 X10'3 (1.8-7.7); NEUTROPHILS % (AUTO) 55.7 % (42-75); PLATELET COUNT 200 X10'3 (140-440); WHITE BLOOD COUNT 8.5 X10'3 (4.5-11.0)
[2023-09-21] MEDS: propofol 10mg/ml 20ml vial IV STA (00:35)
[2023-09-21 00:45] LABS: ALANINE AMINOTRANSFERASE 36 U/L (12-78); ALBUMIN 4.2 G/DL (3.4-5.0); ALKALINE PHOSPHATASE 77 IU/L (46-116); ANION GAP 14 (8-16); ASPARTATE AMINO TRANSFERASE 17 U/L (10-37); BILIRUBIN,TOTAL 1.1 MG/DL (0.1-1.0); BLOOD UREA NITROGEN 27 MG/DL (7-18); CALCIUM 9.3 MG/DL (8.5-10.1); CHLORIDE 102 MMOL/L (99-107); CREATININE 1.08 MG/DL (0.40-0.90); GLUCOSE 189 MG/DL (70-104); POTASSIUM 4.4 MMOL/L (3.5-5.1); SODIUM 137 MMOL/L (135-145); TOTAL CARBON DIOXIDE 20.8 MMOL/L (24-32); TOTAL PROTEIN 8.6 G/DL (6.4-8.2); eCRCL 72 ML/MIN; eGFR 62 ML/MIN
[2023-09-21 00:52] LABS: PRO BRAIN NATRIURETIC PEPTIDE 619 PG/ML (0-125)
[2023-09-21 01:30] VITALS: BP 100/57; PULSE 92; RESP 16; O2SAT 99
[2023-09-21 01:44] LABS: THYROID STIMULATING HORMONE 17.32 ulU/ml (0.34-4.50)
== END 2023-09-21 02:01 | disposition home or self-care (01) ==
LOC: ER 23:38
DX: I47.10 Supraventricular tachycardia, unspecified (principal); R11.0 Nausea; Z79.899 Other long term (current) drug therapy
CPT/HCPCS: 36415; 71045; 80053; 83880; 84439; 84443; 84484; 85025; 92960; 93005; 96374; 96375; 99291; J0153; J2405; J7030; 94760

== ENCOUNTER 2023-09-30 20:29 | Emergency (ER) | payer MEDICAID ==
[~2023-09-30] VITALS: Ht 167.6 cm; Wt 95.0 kg
[2023-09-30 20:38] VITALS: TEMP 98
[2023-09-30 20:59] LABS: BASOPHILS # (AUTO) 0.1 X10'3 (0-0.2); BASOPHILS % (AUTO) 1.5 % (0-1); EOSINOPHILS # (AUTO) 0.1 X10'3 (0-0.9); EOSINOPHILS % (AUTO) 1.5 % (0-6); HEMATOCRIT 50.3 % (35.0-45.0); HEMOGLOBIN 16.7 g/dl (12.0-16.0); LYMPHOCYTES % (AUTO) 31.6 % (21-51); MEAN CORPUSCULAR HEMOGLOBIN 29.8 PG (27.0-31.0); MEAN CORPUSCULAR HGB CONC 33.2 g/dL (33.0-36.5); MEAN CORPUSCULAR VOLUME 89.8 FL (78-98); MEAN PLATELET VOLUME 9.8 FL (7.4-10.4); MONOCYTES # (AUTO) 0.8 X10'3 (0-0.9); MONOCYTES % (AUTO) 8.8 % (2-12); NEUTROPHILS # (AUTO) 5.3 X10'3 (1.8-7.7); NEUTROPHILS % (AUTO) 56.6 % (42-75); PLATELET COUNT 211 X10'3 (140-440); WHITE BLOOD COUNT 9.3 X10'3 (4.5-11.0)
[2023-09-30 21:08] LABS: ALANINE AMINOTRANSFERASE 58 U/L (12-78); ALBUMIN 4.5 G/DL (3.4-5.0); ALKALINE PHOSPHATASE 91 IU/L (46-116); ANION GAP 16 (8-16); ASPARTATE AMINO TRANSFERASE 30 U/L (10-37); BILIRUBIN,TOTAL 2.3 MG/DL (0.1-1.0); BLOOD UREA NITROGEN 19 MG/DL (7-18); BUN/CREATININE RATIO 16.2 (10.0-20.0); CALCIUM 9.7 MG/DL (8.5-10.1); CHLORIDE 103 MMOL/L (99-107); CREATININE 1.17 MG/DL (0.40-0.90); GLUCOSE 117 MG/DL (70-104); POTASSIUM 3.6 MMOL/L (3.5-5.1); SODIUM 141 MMOL/L (135-145); TOTAL CARBON DIOXIDE 21.8 MMOL/L (24-32); TOTAL PROTEIN 9.2 G/DL (6.4-8.2); eCRCL 66 ML/MIN; eGFR 56 ML/MIN
[2023-09-30 21:16] LABS: BILIRUBIN,DIRECT 0.9 MG/DL (0-0.3); PRO BRAIN NATRIURETIC PEPTIDE 811 PG/ML (0-125)
[2023-09-30] MEDS ORDERED: metoprolol tartrate 50mg tablet PO STA (22:20)
[2023-09-30] MEDS: metoprolol tartrate 25mg tablet PO STA (22:28)
[2023-09-30] MEDS: propofol 10mg/ml 20ml vial IV ONE (22:35)
[2023-09-30] MEDS: metoprolol tartrate 1mg/ml inj IV ONE (22:35)
[2023-09-30] MEDS: normal saline 1000ML IV soln IVB ONE (22:35)
[2023-09-30] MEDS: LORazepam 2 mg/ml vial IV ONE (22:35)
[2023-10-01 00:21] VITALS: BP 98/67; PULSE 109; RESP 16; O2SAT 94
== END 2023-10-01 00:53 | disposition left against medical advice (07) ==
LOC: ER 20:30
DX: I48.20 Chronic atrial fibrillation, unspecified (principal); Q24.9 Congenital malformation of heart, unspecified; I47.19 Other supraventricular tachycardia
CPT/HCPCS: 36415; 71045; 80048; 80076; 83880; 84484; 85025; 93005; 96360; 99285; J7030

== ENCOUNTER 2023-10-04 04:11 | Emergency (ER) | payer MEDICAID ==
[~2023-10-04] VITALS: Ht 165.1 cm; Wt 92.7 kg
[2023-10-04] MEDS: normal saline 1000ml 1,000 ML IV ONE (04:45)
[2023-10-04 05:00] LABS: BASOPHILS # (AUTO) 0.1 X10'3 (0-0.2); BASOPHILS % (AUTO) 0.6 % (0-1); EOSINOPHILS # (AUTO) 0.2 X10'3 (0-0.9); HEMATOCRIT 48.9 % (35.0-45.0); HEMOGLOBIN 16.1 g/dl (12.0-16.0); LYMPHOCYTES # (AUTO) 3.8 X10'3 (1.1-4.8); LYMPHOCYTES % (AUTO) 39.6 % (21-51); MEAN CORPUSCULAR HEMOGLOBIN 29.8 PG (27.0-31.0); MEAN CORPUSCULAR VOLUME 90.3 FL (78-98); MEAN PLATELET VOLUME 10.2 FL (7.4-10.4); MONOCYTES # (AUTO) 0.8 X10'3 (0-0.9); MONOCYTES % (AUTO) 8.3 % (2-12); NEUTROPHILS # (AUTO) 4.7 X10'3 (1.8-7.7); NEUTROPHILS % (AUTO) 49.5 % (42-75); PLATELET COUNT 213 X10'3 (140-440); RED BLOOD COUNT 5.42 X10'6 (4.20-5.60); WHITE BLOOD COUNT 9.5 X10'3 (4.5-11.0)
[2023-10-04 05:10] LABS: ALANINE AMINOTRANSFERASE 48 U/L (12-78); ALBUMIN 4.2 G/DL (3.4-5.0); ALKALINE PHOSPHATASE 82 IU/L (46-116); ANION GAP 14 (8-16); ASPARTATE AMINO TRANSFERASE 23 U/L (10-37); BLOOD UREA NITROGEN 18 MG/DL (7-18); BUN/CREATININE RATIO 13.6 (10.0-20.0); CALCIUM 9.4 MG/DL (8.5-10.1); CHLORIDE 102 MMOL/L (99-107); CREATININE 1.32 MG/DL (0.40-0.90); GLUCOSE 217 MG/DL (70-104); POTASSIUM 3.6 MMOL/L (3.5-5.1); SODIUM 139 MMOL/L (135-145); TOTAL CARBON DIOXIDE 22.7 MMOL/L (24-32); TOTAL PROTEIN 8.6 G/DL (6.4-8.2); eCRCL 59 ML/MIN; eGFR 49 ML/MIN
[2023-10-04 05:18] LABS: PRO BRAIN NATRIURETIC PEPTIDE 656 PG/ML (0-125)
[2023-10-04 06:05] LABS: MAGNESIUM 2.4 MG/DL (1.5-2.4)
[2023-10-04] MEDS ORDERED: sotalol 80mg tablet PO ONE (06:55)
[2023-10-04] MEDS ORDERED: sotalol 80mg tablet PO SCH (06:55)
[2023-10-04 07:21] VITALS: TEMP 97.9
[2023-10-04] MEDS: magnesium oxide 400mg tablet PO ONE (07:36)
[2023-10-04] MEDS: apixaban 5mg tablet PO ONE (07:36)
[2023-10-04] MEDS: potassium Cl 20 mEq SR tablet PO ONE (07:36)
[2023-10-04] MEDS: acetaminophen 325mg tablet PO ONE (07:36)
[2023-10-04] MEDS: metoprolol succinate 25mg (24-HOUR) SR. Tablet PO ONE (07:37)
[2023-10-04] MEDS: ondansetron/PF 4mg/2ml inj IV ONE (07:37)
[2023-10-04 09:32] VITALS: BP 95/72; PULSE 80; RESP 14; O2SAT 98
== END 2023-10-04 09:33 | disposition home or self-care (01) ==
LOC: ER 04:13
DX: I47.10 Supraventricular tachycardia, unspecified (principal); R11.0 Nausea; Z79.899 Other long term (current) drug therapy
CPT/HCPCS: 36415; 71045; 80053; 83735; 83880; 84484; 85025; 93005; 96361; 96374; 99291; J2405; J7030

== ENCOUNTER 2023-11-10 09:50 | Emergency (ER) | payer MEDICAID ==
[~2023-11-10] VITALS: Ht 165.1 cm; Wt 90.9 kg
[2023-11-10 10:10] VITALS: TEMP 97.7
[2023-11-10] MEDS: normal saline 1000ml 1,000 ML IV ONE ×2 (10:17→12:20)
[2023-11-10 10:19] LABS: BASOPHILS # (AUTO) 0.1 X10'3 (0-0.2); BASOPHILS % (AUTO) 0.6 % (0-1); EOSINOPHILS # (AUTO) 0.2 X10'3 (0-0.9); EOSINOPHILS % (AUTO) 2.4 % (0-6); HEMATOCRIT 48.5 % (35.0-45.0); HEMOGLOBIN 16.2 g/dl (12.0-16.0); LYMPHOCYTES # (AUTO) 2.8 X10'3 (1.1-4.8); LYMPHOCYTES % (AUTO) 32.2 % (21-51); MEAN CORPUSCULAR HEMOGLOBIN 28.8 PG (27.0-31.0); MEAN CORPUSCULAR HGB CONC 33.5 g/dL (33.0-36.5); MEAN PLATELET VOLUME 9.4 FL (7.4-10.4); MONOCYTES # (AUTO) 0.9 X10'3 (0-0.9); MONOCYTES % (AUTO) 10.8 % (2-12); NEUTROPHILS # (AUTO) 4.7 X10'3 (1.8-7.7); PLATELET COUNT 199 X10'3 (140-440); RED BLOOD COUNT 5.64 X10'6 (4.20-5.60); RED CELL DISTRIBUTION WIDTH 15.2 % (11.5-14.5); WHITE BLOOD COUNT 8.7 X10'3 (4.5-11.0)
[2023-11-10] MEDS: metoprolol tartrate 1mg/ml inj IV ONE (10:37)
[2023-11-10 10:38] LABS: ALBUMIN 4.2 G/DL (3.4-5.0); ANION GAP 9 (8-16); BLOOD UREA NITROGEN 22 MG/DL (7-18); BUN/CREATININE RATIO 16.1 (10.0-20.0); CALCIUM 9.5 MG/DL (8.5-10.1); CHLORIDE 102 MMOL/L (99-107); CREATININE 1.37 MG/DL (0.40-0.90); GLUCOSE 125 MG/DL (70-104); MAGNESIUM 2.2 MG/DL (1.5-2.4); POTASSIUM 3.5 MMOL/L (3.5-5.1); SODIUM 137 MMOL/L (135-145); TOTAL CARBON DIOXIDE 26.4 MMOL/L (24-32); eCRCL 56 ML/MIN; eGFR 47 ML/MIN
[2023-11-10] MEDS: morphine 2 MG/ML inj. syringe IV ONE (10:47)
[2023-11-10] MEDS: diltiazem 5mg/ml 5ml inj. IV ONE (10:53)
[2023-11-10 11:53] LABS: HCG SERUM QL NEGATIVE
[2023-11-10 11:57] LABS: D-DIMER < 0.19 MG/L FEU (0-0.50)
[2023-11-10] MEDS: etomidate 2mg/ml inj. IV ONE (15:35)
[2023-11-10 16:21] LABS: THYROID STIMULATING HORMONE 6.71 ulU/ml (0.34-4.50)
[2023-11-10 18:19] VITALS: BP 113/64; PULSE 84; RESP 18; O2SAT 98
== END 2023-11-10 18:19 | disposition home or self-care (01) ==
LOC: ER 09:51
DX: I49.9 Cardiac arrhythmia, unspecified (principal); I47.10 Supraventricular tachycardia, unspecified; Z79.899 Other long term (current) drug therapy
CPT/HCPCS: 36415; 71045; 80048; 83735; 84443; 84484; 84703; 85025; 85379; 92960; 93005; 96361; 96374; 96375; 99291; J2270; J3490; J7030; 94760; A4615; A4620

== ENCOUNTER 2024-01-05 15:49 | Emergency (ER) | payer MEDICAID ==
[~2024-01-05] VITALS: Ht 165.1 cm; Wt 93.2 kg
[2024-01-05 17:39] LABS: BASOPHILS % (AUTO) 0.5 % (0-1); EOSINOPHILS # (AUTO) 0.1 X10'3 (0-0.9); HEMATOCRIT 41.9 % (35.0-45.0); HEMOGLOBIN 13.8 g/dl (12.0-16.0); LYMPHOCYTES # (AUTO) 1.3 X10'3 (1.1-4.8); LYMPHOCYTES % (AUTO) 20.4 % (21-51); MEAN CORPUSCULAR HEMOGLOBIN 27.9 PG (27.0-31.0); MEAN CORPUSCULAR VOLUME 84.5 FL (78-98); MEAN PLATELET VOLUME 9.4 FL (7.4-10.4); MONOCYTES # (AUTO) 0.5 X10'3 (0-0.9); MONOCYTES % (AUTO) 7.7 % (2-12); NEUTROPHILS # (AUTO) 4.5 X10'3 (1.8-7.7); NEUTROPHILS % (AUTO) 69.4 % (42-75); PLATELET COUNT 182 X10'3 (140-440); RED BLOOD COUNT 4.96 X10'6 (4.20-5.60); RED CELL DISTRIBUTION WIDTH 15.6 % (11.5-14.5); WHITE BLOOD COUNT 6.4 X10'3 (4.5-11.0)
[2024-01-05 17:58] LABS: ALBUMIN 3.7 G/DL (3.4-5.0); ANION GAP 8 (8-16); BLOOD UREA NITROGEN 24 MG/DL (7-18); BUN/CREATININE RATIO 18.8 (10.0-20.0); CALCIUM 8.7 MG/DL (8.5-10.1); CHLORIDE 101 MMOL/L (99-107); CREATININE 1.28 MG/DL (0.40-0.90); GLUCOSE 97 MG/DL (70-104); POTASSIUM 3.6 MMOL/L (3.5-5.1); PRO BRAIN NATRIURETIC PEPTIDE 413 PG/ML (0-125); SODIUM 136 MMOL/L (135-145); TOTAL CARBON DIOXIDE 26.7 MMOL/L (24-32); eCRCL 60 ML/MIN; eGFR 50 ML/MIN
[2024-01-05 18:40] VITALS: BP 90/61; PULSE 81; RESP 14; TEMP 98.6; O2SAT 96
== END 2024-01-05 18:43 | disposition home or self-care (01) ==
LOC: ER 15:49
DX: I47.19 Other supraventricular tachycardia (principal); Q24.9 Congenital malformation of heart, unspecified; I48.91 Unspecified atrial fibrillation; I50.9 Heart failure, unspecified
CPT/HCPCS: 36415; 71045; 80048; 83735; 83880; 84484; 85025; 93005; 99285; J7030

== ENCOUNTER 2024-02-07 10:37 | Emergency (ER) | payer MEDICAID ==
[~2024-02-07] VITALS: Ht 165.1 cm; Wt 90.6 kg
[2024-02-07 10:42] VITALS: BP 92/60; PULSE 79; RESP 16; TEMP 98.2; O2SAT 98
[2024-02-07 11:39] LABS: BASOPHILS % (AUTO) 0.6 % (0-1); EOSINOPHILS # (AUTO) 0.1 X10'3 (0-0.9); EOSINOPHILS % (AUTO) 2.3 % (0-6); HEMATOCRIT 45.6 % (35.0-45.0); LYMPHOCYTES # (AUTO) 1.5 X10'3 (1.1-4.8); LYMPHOCYTES % (AUTO) 24.3 % (21-51); MEAN PLATELET VOLUME 9.7 FL (7.4-10.4); MONOCYTES # (AUTO) 0.6 X10'3 (0-0.9); MONOCYTES % (AUTO) 9.6 % (2-12); NEUTROPHILS # (AUTO) 3.8 X10'3 (1.8-7.7); NEUTROPHILS % (AUTO) 63.2 % (42-75); PLATELET COUNT 191 X10'3 (140-440); RED BLOOD COUNT 5.36 X10'6 (4.20-5.60); RED CELL DISTRIBUTION WIDTH 17.1 % (11.5-14.5); WHITE BLOOD COUNT 6.1 X10'3 (4.5-11.0)
[2024-02-07 11:44] LABS: ANION GAP 12 (8-16); BLOOD UREA NITROGEN 20 MG/DL (7-18); BUN/CREATININE RATIO 20.2 (10.0-20.0); CALCIUM 9.3 MG/DL (8.5-10.1); CHLORIDE 103 MMOL/L (99-107); CREATININE 0.99 MG/DL (0.40-0.90); GLUCOSE 96 MG/DL (70-104); POTASSIUM 3.8 MMOL/L (3.5-5.1); PRO BRAIN NATRIURETIC PEPTIDE 281 PG/ML (0-125); SODIUM 136 MMOL/L (135-145); eCRCL 77 ML/MIN; eGFR 68 ML/MIN
== END 2024-02-07 13:24 | disposition left against medical advice (07) ==
LOC: ER 10:37
DX: R42 Dizziness and giddiness (principal); R00.2 Palpitations; R07.89 Other chest pain; R20.0 Anesthesia of skin; R20.2 Paresthesia of skin; Z53.21 Procedure and treatment not carried out due to patient leaving prior to being seen by health care provider
CPT/HCPCS: 36415; 71045; 80048; 83880; 84484; 85025; 93005

== ENCOUNTER 2024-04-30 18:12 | Emergency (ER) | payer MEDICAID ==
[~2024-04-30] VITALS: Ht 162.6 cm; Wt 87.3 kg
[2024-04-30 20:21] VITALS: BP 100/67; PULSE 81; RESP 16; TEMP 97; O2SAT 99
== END 2024-04-30 20:22 | disposition home or self-care (01) ==
LOC: ER 18:12
DX: J06.9 Acute upper respiratory infection, unspecified (principal); I48.91 Unspecified atrial fibrillation; I50.9 Heart failure, unspecified; Z20.822 Contact with and (suspected) exposure to COVID-19; Z79.899 Other long term (current) drug therapy; Z98.890 Other specified postprocedural states
CPT/HCPCS: 36415; 71045; 87502; 87503; 87811; 99284

== ENCOUNTER 2025-02-24 19:13 | Emergency (ER) | payer MEDICAID ==
[~2025-02-24] VITALS: Ht 165.1 cm; Wt 99.9 kg
[2025-02-24 19:28] VITALS: BP 126/64; PULSE 70; RESP 16; O2SAT 94
--- NOTE | 2025-02-24 20:09 | Physician Documentation ---
History of Present Illness ~ Chief Complaint: Vaginal Bleeding Stated Complaint: COMPLICATIONS Time Seen by MD: 19:47 OK to notify your PCP?: Yes Primary Medical Doctor: [facility] Source: patient Mode of Arrival: POV Exam Limitations: no limitations HPI 29-year-old female presents with mild vaginal bleeding and lower abdominal cramping. . She is approximately 3-4 weeks' . She has had 1 miscarriage in the past and states it feels similar but not as bad. She had her beta quant level checked on and it was 13. She reports that she has been or in the same pad for the past couple hours and not needed to change it due to volume. Medication Reconciliation Allergies: Coded Allergies: No Known Allergies (Unverified , 02/24/25) Scheduled Amiodarone Hcl (Cordarone), 1 TAB PO DAILY, (Reported) Apixaban (Eliquis), 1 TAB PO DAILY, (Reported) Nirmatrelvir/Ritonavir (Paxlovid Co-Pack (Eua)), 3 EACH PO BID Past Medical History Past Medical History: *CARDIOVASCULAR*, Atrial Fibrillation, Congestive Heart Failure, Valve Insuffciency, Vascular Disease Past Surgical History: heart valve surgery, orthopedic surgeries, other Alcohol Use: None Drug Use: none Lives with: Mother, Father Lives In: Home Occupation: student Review of Systems All Other Systems at this time: Reviewed and Negative Physical Exam Vital Signs: RN Vital Signs have been reviewed: Yes, Temperature: 97.9, Source: Temporal, Heart Rate: 70, Respiratory Rate: 16, BP: 126/64, Pulse Oximetry: 94, Weight: 99.900 Pulse Oximetry Reflects: adequate oxygenation Physical Exam General: Alert, no apparent distress. HEENT: PERRL, EOMI, no injection, moist mucous membranes. Neck: Full range of motion. Respiratory: Lungs clear, no respiratory distress. Chest: No accessory muscle use. Cardiovascular: Regular rate and rhythm, no murmurs. Gastrointestinal: Soft, nondistended. Bowels sounds present. Tenderness to palpation of lower abdomen. Extremities: Normal range of motion, no deformity. Neurologic: Oriented x4. Psychiatric: Normal mood and affect. Skin: Normal color, warm and dry. No edema, no ecchymosis. Progress Results/Orders Reviewed/noted all lab results: Yes Results/Orders Orders - GIULIA POLLACK Abo/Rh (Type Only) (02/24/25 20:00) Completed Orders - GIULIA POLLACK Hcg Serum Qt (02/24/25 20:00) Cbc/Diff (02/24/25 20:00) Ua W/Microscopic, Cult If Ind (02/24/25 19:34) Vital Signs 02/24/25 02/24/25 19:28 21:27 Temp 97.9 97.9 Pulse 70 Resp 16 B/P (MAP) 126/64 Pulse Ox 94 Laboratory Tests Test 02/24/25 19:34 02/24/25 20:18 Urine Specimen Description Cln catch midstream Urine Color Yellow Urine Clarity Clear Urine pH 6.0 Urine Specific [place] 1.020 Urine Protein Trace Urine Glucose (UA) Negative Urine Ketones Negative Urine Occult Blood Large H Urine Nitrite Negative Urine Bilirubin Negative Urine Urobilinogen 2.0 H Urine Leukocyte Esterase Negative Urine RBC Tntc Urine WBC 0-4 Urine Squamous Epithelial Cells Moderate Urine Bacteria Few Urine Culture Indicated Not ind Volume Urine Centrifuged 10 ml Urine Comment White Blood Count 4.7 Red Blood Count 4.43 Hemoglobin 13.0 Hematocrit 38.8 Mean Corpuscular Volume 87.6 Mean Corpuscular Hemoglobin 29.3 Mean Corpuscular Hemoglobin Concent 33.4 Red Cell Distribution Width 16.1 H Platelet Count 179 Mean Platelet Volume 9.1 Neutrophils (%) (Auto) 67.2 Lymphocytes (%) (Auto) 20.3 L Monocytes (%) (Auto) 8.2 Eosinophils (%) (Auto) 3.6 Basophils (%) (Auto) 0.7 Neutrophils # (Auto) 3.2 Lymphocytes # (Auto) 1.0 L Monocytes # (Auto) 0.4 Eosinophils # (Auto) 0.2 Basophils # (Auto) 0.0 CBC Comment HCG Beta Subunit 4 Medical Decision Making Additional info obtained from: old records Findings 29-year-old female presents for lower abdominal cramping and vaginal bleeding. She has a history of a miscarriage in the past but it does not feel as bad as last time. She is approximately 3-4 weeks' and she has been actively trying. 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 She had her beta quant level done on and it was 13. Today's level is 4 so she is having or has had a miscarriage. I discussed this with the patient as her CBC was normal, urinalysis was normal and Rh test is pending. She has never received a RhoGAM shot in the past so she thinks that she is Rh positive and her is Rh negative. Discussed that she should follow up with her primary care provider within the next week. Urinary Diff Dx:Considerations: Include: Ectopic , Ovarian torsion, PID, UTI, Vaginitis Genital Diff Dx:Considerations: Include: Cervicitis, Dsymenorrhea Departure Disposition: HOME / SELF CARE / HOMELESS Impression: Primary Impression: Miscarriage Condition: Stable Discharge Instructions: Miscarriage, [id number] Additional Instructions: Please follow up with her primary care provider within the next week. Referrals: NO PRIMARY CARE PROVIDER (PCP) Education Educated: Patient Educated regarding: diagnosis, treatment, prognosis, need for follow up Additional Comment Medical Screen Exam This patient recieved a medical screening examination. After reviewing the individual's medical complaints with presenting symptoms and performing an appropriate physical examination, it was determined that no immediate life- threatening emergency medical condition is present. This individual is also not a women having contractions. Signature Scribe Signature: . Attestation: Scribed for Giulia Pollack [facility] by Giulia Chan NP . 02/24/25 21:32 Parts of this note were created using [employer] voice recognition software program. While efforts were made to correct any mistakes made by this voice recognition software program, nonsensical phrases may remain in this note. In addition, there may be errors and syntax, grammar, content and spelling. GIULIA POLLACK [employer] Feb 24, 2025 20:09
[2025-02-24 20:34] LABS: MEAN PLATELET VOLUME 9.1 FL (7.4-10.4); RED CELL DISTRIBUTION WIDTH 16.1 % (11.5-14.5)
[2025-02-24 20:48] LABS: LEUKOCYTE ESTERASE ,URINE NEGATIVE (Neg); NITRITES, URINE NEGATIVE (Neg); OCCULT BLOOD,URINE LARGE (Neg)
[2025-02-24 20:49] LABS: UA COLLECTION TYPE CLN CATCH MIDSTREAM
[2025-02-24 21:12] LABS: SQUAMOUS EPITHELIAL CELL,UR MODERATE /LPF (FEW)
[2025-02-24 21:27] VITALS: TEMP 97.9
== END 2025-02-24 21:30 | disposition home or self-care (01) ==
LOC: ER 19:14
DX: O03.9 Complete or unspecified spontaneous abortion without complication (principal); I48.91 Unspecified atrial fibrillation; I50.9 Heart failure, unspecified; Z3A.01 Less than 8 weeks gestation of pregnancy
CPT/HCPCS: 36415; 81001; 84702; 85025; 86900; 86901; 99283